=== PATIENT | female | born 1970 | race Caucasian/White ===

== ENCOUNTER 2018-08-07 23:51 | Inpatient (IN) | payer BC ==
[~2018-08-07] VITALS: Ht 167.6 cm; Wt 103.4 kg
[2018-08-08 00:04] VITALS: BP_SYST 107
--- NOTE | 2018-08-08 00:09 | NUR ---
Pt placed to ER waiting room in stable condition.
--- NOTE | 2018-08-08 00:54 | NUR ---
0054 - Patient to ER bed 4 to gown for evaluation. Side rails up. Report given to MARÍA Rosas.
--- NOTE | 2018-08-08 01:00 | NUR ---
Pt C/O epigastric abdominal pain and nausea x 2 days. Pt states the pain has gotten progressively worse and new onset of vomiting upon arrival to the ER. Denies any fever, radiating pain or any other symptoms at this time. Will continue to monitor.
--- NOTE | 2018-08-08 01:10 | NUR ---
ER Dr. Fernandes at bedside examining patient.
[2018-08-08] MEDS ORDERED: NACL 0.9% 1,000 ML IV ONE (01:13)
[2018-08-08] MEDS ORDERED: DIPHENHYDRAMINE INJ 50 MG/ML VIAL IVP ONE (01:15)
[2018-08-08] MEDS ORDERED: MORPHINE 4 MG/ML INJ. SYRINGE IVP ONE (01:15)
[2018-08-08] MEDS ORDERED: ONDANSETRON HCL 4 MG/2 ML VIAL IVP ONE (01:15)
[2018-08-08 01:34] LABS: BILIRUBIN,URINE NEGATIVE (NEGATIVE); BLOOD, URINE 3+ (NEGATIVE); CLARITY/URINE SL HAZY (CLEAR); COLOR,URINE YELLOW (YELLOW); GLUCOSE,URINE NEGATIVE (NEGATIVE); KETONES,URINE 3+ (NEGATIVE); LEUKOCYTE ESTERASE ,URINE TRACE (NEGATIVE); NITRITE, URINE NEGATIVE (NEGATIVE); PROTEIN URINE TRACE (NEGATIVE); UROBILINOGEN,URINE 0.2 (0.2-1.0)
[2018-08-08 01:35] LABS: BASOPHILS % (AUTO) 0.2 % (0.0-2.0); EOSINOPHILS # (AUTO) 0.1 K/uL (0.0-0.4); EOSINOPHILS % (AUTO) 0.8 % (0.0-4.0); HEMATOCRIT 39.1 % (36-48); HEMOGLOBIN 13.6 g/dL (12.0-16.0); LYMPHOCYTES # (AUTO) 1.9 K/uL (1.0-5.5); LYMPHOCYTES % (AUTO) 11.4 % (20.5-51.5); MEAN CORPUSCULAR HEMOGLOBIN 33 pg (27-31); MEAN CORPUSCULAR HGB CONC 35 % (32-36); MEAN CORPUSCULAR VOLUME 94 fL (79.0-98.0); MONOCYTES # (AUTO) 0.6 K/uL (0.0-1.0); MONOCYTES % (AUTO) 3.4 % (1.7-9.3); NEUTROPHILS % (AUTO) 84.2 % (40.0-70.0); PLATELET COUNT (AUTO) 291 K/uL (130-430); RED BLOOD CELL COUNT(AUTO) 4.18 MIL/uL (4.2-6.2); RED CELL DISTRIBUTION WIDTH 12.5 % (9.0-15.0); WHITE BLOOD COUNT (AUTO) 16.6 K/uL (4.8-10.8)
[2018-08-08 01:46] LABS: BACTERIA,URINE MODERATE /HPF (None Seen)
[2018-08-08 01:54] LABS: ALBUMIN 3.4 g/dL (3.4-4.8); CALCIUM 9.1 mg/dL (8.4-11.0); CREATININE 0.65 mg/dL (0.55-1.30); POTASSIUM 3.2 mmol/L (3.5-5.1); TOTAL BILIRUBIN 0.4 mg/dL (0.0-1.0)
--- NOTE | 2018-08-08 02:00 | NUR ---
Pt is resting in bed, no acute distress noted at this time. Will continue to monitor.
[2018-08-08] MEDS ORDERED: MAG HYDROX/AL HYDROX/SIMETH 30 ML, DICYCLOMINE HCL 20 MG, LIDOCAINE VISCOUS 2% 15ML (PO... PO ONE ×3 (03:30)
[2018-08-08] MEDS ORDERED: OMEP20CA10 PO (03:40)
[2018-08-08] MEDS ORDERED: HYDR25TA4 PO (03:40)
--- NOTE | 2018-08-08 03:41 | NUR ---
Medication reconciliation completed with information provided by patient
--- NOTE | 2018-08-08 03:57 | NUR ---
Patient will be admitted to care of Dr. Tsang. Admitted to med surg unit. Will go to room 107B. Belongings list completed. Summary report printed. Report will be given at bedside.
[2018-08-08] MEDS ORDERED: D5/0.45 NS 1,000 ML IV ONE (04:00)
[2018-08-08] MEDS ORDERED: PIPERACILLIN/TAZO 3.375 GM in NS 50 ML IV ONE ×2 (04:00→04:45)
--- NOTE | 2018-08-08 04:15 | NUR ---
ADMISSION NOTE Received patient from ER via johnnie, received report from MARÍA NUÑEZ. Patient admitted with diagnosis of Acute appendicitis. Patient oriented to hospital routine, call light, toileting and safety-patient verbalized understanding.
[2018-08-08 04:21] VITALS: BP_SYST 113
--- NOTE | 2018-08-08 04:41 | NUR ---
CONSULTATION PAGED/CALLED Reason for Consultation: surgical consult / appy Person Who was Notified: er contacted maria de jesus from [facility] and they spoke with doctor altaf Consulting Physician:altaf Options Advisor Specialty: surgeon Ordering Physician: rena
[2018-08-08] MEDS ORDERED: PIPERACILLIN/TAZOBACTAM 3.375 GM/VIAL (ZOSYN) IV ONE (05:04)
--- NOTE | 2018-08-08 05:10 | NUR ---
RN ROUNDS Patient placed in room 107b, aox4, ambulatory, vitals stable. On room air, patient c/o of abd pain 5/10, tolerable, refused pain medication at this time. Patient npo and compliant. IV line to left ac intact and patent, started on IVF per md order. Plan of care discussed with patient, verbalized understanding, oriented to room and call light for nurse assistance, safety measures in place, will monitor.
--- NOTE | 2018-08-08 06:08 | NUR ---
RN ROUNDS Patient asleep, breathing even and unlabored, IVF ongoing, due antibiotic of zosyn administered. Safety measures in place, call light within reach, will monitor.
--- NOTE | 2018-08-08 06:54 | NUR ---
CLOSING NOTE Patient continues to sleep, breathing even and unlabored, needs attended to, safety measures maintained, will continue to monitor until report given to am nurse.
--- NOTE | 2018-08-08 07:20 | NUR ---
Opening Note patient resting in bed, awake and alert, denies pain at this time, breathing unlabored and symmetrical, no signs of distress, educated patient on use of call light for assistance, verbalized understanding, call light and bedside table left within reach, will continue to monitor patient
[2018-08-08 07:45] VITALS: BP_SYST 120
--- NOTE | 2018-08-08 08:06 | NUR ---
Patient being taken to OR at this time, will assess when she returns
[2018-08-08] MEDS ORDERED: fentaNYL CITRATE/PF 100 MCG/2 ML AMP IVP PRN ×2 (09:15)
[2018-08-08] MEDS ORDERED: KETOROLAC TROMETHAMINE 30 MG VIAL IVP PRN (09:15)
[2018-08-08] MEDS ORDERED: ONDANSETRON HCL 4 MG/2 ML VIAL IVP PRN ×2 (09:15→10:30)
[2018-08-08] MEDS: NACL 0.9% 1,000 ML IV SCH ×3 (09:55→22:50)
[2018-08-08] MEDS ORDERED: LR 1,000 ML IV.SOLN IV ONE (10:00)
[2018-08-08] MEDS ORDERED: GLYCOPYRROLATE 0.2 MG/ML VIAL ONE (10:00)
[2018-08-08] MEDS ORDERED: KETOROLAC TROMETHAMINE 30 MG VIAL ONE (10:00)
[2018-08-08] MEDS ORDERED: ROCURONIUM BROMIDE 10 MG/ML (ZEMURON) ONE (10:00)
[2018-08-08] MEDS ORDERED: ACETAMINOPHEN 325 MG TABLET PO PRN ×2 (10:00→10:30)
[2018-08-08] MEDS ORDERED: PROPOFOL 200MG/ 20ML VIAL (DIPRIVAN) IV ONE (10:00)
[2018-08-08] MEDS ORDERED: BUPIVACAINE /EPINEPHRINE/PF 0.25% 30 ML VIAL INJ ONE (10:00)
[2018-08-08] MEDS ORDERED: SEVOFLURANE 15 MIN GAS INH ONE (10:00)
[2018-08-08] MEDS ORDERED: MIDAZOLAM HCL 5 MG/ML VIAL (VERSED) IV ONE (10:00)
[2018-08-08] MEDS ORDERED: LABETALOL 100 MG/ 20ML VIAL ONE (10:00)
[2018-08-08] MEDS ORDERED: LIDOCAINE 2%, 20 ML MDV ONE (10:00)
[2018-08-08] MEDS ORDERED: BUPIVACAINE /PF 0.5% 30 ML VIAL ONE (10:00)
[2018-08-08] MEDS ORDERED: ONDANSETRON HCL 4 MG/2 ML VIAL ONE ×2 (10:00→10:33)
[2018-08-08] MEDS ORDERED: PHENYLEPHRINE HCL 10 MG/ML VIAL (NEOSYNEPHRINE) ONE (10:00)
[2018-08-08] MEDS ORDERED: fentaNYL CITRATE/PF 100 MCG/2 ML AMP ONE (10:00)
[2018-08-08] MEDS ORDERED: HYDROmorphone 1 MG INJ. 1 MG/ML AMPUL IVP PRN (10:00)
[2018-08-08] MEDS ORDERED: NEOSTIGMINE METHYLSULFATE 1 MG/ML, 10 ML VIAL ONE (10:00)
[2018-08-08] MEDS ORDERED: MUPIROCIN 2% TOPICAL OINTMENT 22 GM NS PRN (10:30)
[2018-08-08] MEDS ORDERED: ZOLPIDEM TARTRATE 5 MG TABLET PO PRN (10:30)
[2018-08-08] MEDS ORDERED: MORPHINE 2 MG/ML INJ. SYRINGE IVP PRN ×2 (10:30)
[2018-08-08] MEDS ORDERED: DOCUSATE SODIUM 100 MG CAPSULE PO PRN (10:30)
[2018-08-08] MEDS ORDERED: MAGNESIUM SULFATE 50 ML IV PRN (10:30)
[2018-08-08] MEDS ORDERED: LORazepam 2 MG/ML VIAL IVP PRN (10:30)
--- NOTE | 2018-08-08 10:45 | NUR ---
Patient Back on Unit at this time, family at bedside, patient awake and alert, vitals within normal limits, dressings clean dry and in tact, safety precautions in place, educated patient on use of call light for assistance, verbalized understanding, call light and bedside table left within reach, will continue to monitor
[2018-08-08 11:30] VITALS: BP_SYST 113
[2018-08-08] MEDS: CEFAZOLIN 2 GM IVPB PREMIX 50 ML IV SCH ×2 (12:03→17:16)
--- NOTE | 2018-08-08 12:45 | NUR ---
Incentive Spirometer patient was educated on device, verbalized understanding, was able to reach 1000 mL, educated fernando goal of 1500 mL and frequency of use, verbalized understanding, left within reach
[2018-08-08] MEDS: HYDROcodone/ACETAMIN 5-325 MG TAB (NORCO/ VICODIN) PO PRN (13:05)
[2018-08-08] MEDS: metroNIDAZOLE 500 mg/NS 100 ML IV SCH ×2 (13:05→18:35)
--- NOTE | 2018-08-08 14:30 | NUR ---
Patient Ambulated to Restroom steady gait, educated her on safety, verbalized understanding, was assisted back to bed, educated patient on use of call light for assistance, verbalized understanding, call light and bedside table left within reach, will continue to monitor
[2018-08-08 15:37] VITALS: BP_SYST 113
--- NOTE | 2018-08-08 17:23 | NUR ---
Antibiotics Hung at this time as scheduled, educated patient regarding med, verbalized understanding, IV site remains patent, family at bedside, patient complaining of pain, educated her about pain meds, verbalized understanding, doesn't want pain meds at this time, educated her to let me know when she needs them, verbalized understanding, no other needs at this time, educated patient on use of call light for assistance, verbalized understanding, call light and bedside table left within reach, will continue to monitor
[2018-08-08] MEDS: MORPHINE 2 MG/ML INJ. SYRINGE IVP PRN (18:35)
[2018-08-08] MEDS: ONDANSETRON HCL 4 MG/2 ML VIAL IVP PRN (18:35)
[2018-08-08] MEDS: POTASSIUM CHLORIDE 20 MEQ TAB.PRT.SR PO PRN (18:36)
--- NOTE | 2018-08-08 19:15 | NUR ---
Closing Note patient resting in bed, awake and alert, denies pain at this time, breathing unlabored and symmetrical, IV fluids infusing, family at bedside, no other needs, safety precautions in place, endorsed to [employer] shift supervisor nurse
--- NOTE | 2018-08-08 19:28 | NUR ---
OPENING NOTES Pt and endorsement received from day shift nurse. Pt is AAOx4, lying in bed. Family at bedside. Pt on IVF and infusing well on left AC G20. No complains of pain or discomfort at this time. No signs of acute distress or SOB noted. Educated on safety precautions and encouraged to use call light when needed. Safety precautions in place with 3 side rails up, bed alarm on, locked and in lowest position. Call light with pt. Will continue to monitor.
[2018-08-08 20:31] VITALS: BP_SYST 105
--- NOTE | 2018-08-08 22:55 | NUR ---
AMBULATE Assisted pt to ambulate in the hallway and back to her room, pt tolerated well. Pt verbalized she can tolerate the pain at this time. No signs of acute distress or SOB noted. IVF patent and infusing well. Safety precautions in place and call light with pt. Will continue to monitor.
[2018-08-09 00:09] VITALS: BP_SYST 99
--- NOTE | 2018-08-09 00:09 | NUR ---
ROUNDS Pt is resting in bed with both eyes closed. With visible chest rise and fall with unlabored breathing noted. IVF patent and infusing well. No complains of pain at this time. No signs of acute distress or SOB noted. Safety precautions in place and call light with pt. Will continue to monitor.
--- NOTE | 2018-08-09 03:06 | NUR ---
ROUNDS Pt is resting in bed with both eyes closed, with visible chest rise and fall with unlabored breathing noted. Pt is easily arousable. IVF infusing well. No complains of pain and no signs of acute distress noted. Safety precautions in place and call light with pt. Will continue to monitor.
[2018-08-09] MEDS: ONDANSETRON HCL 4 MG/2 ML VIAL IVP PRN (03:57)
[2018-08-09 04:00] VITALS: BP_SYST 112
[2018-08-09] MEDS: MORPHINE 2 MG/ML INJ. SYRINGE IVP PRN (04:01)
--- NOTE | 2018-08-09 04:01 | NUR ---
MORPHINE 2MG GIVEN Assisted pt to the restroom and back to bed. Pt complained of abdominal pain with a scale of 10/10. Zofran 4mg IVP given and Morphine 2mg IVP given as ordered. Encouraged position of comfort and use of incentive spirometer, pt able to inspire 1500ml of air. No signs of acute distress noted. Safety precautions in place and call light with pt. Will continue to monitor.
--- NOTE | 2018-08-09 06:24 | NUR ---
CLOSING NOTES Pt is resting in bed with both eyes closed, with visible chest rise and fall with unlabored breathing noted. Pt is easily arousable. No complains of pain or discomfort at this time. No signs of acute distress or SOB noted. IVF patent and infusing well. All needs attended throughout the shift. Safety precautions maintained with 3 side rails up, bed alarm on, locked and in lowest position. Call light with pt. Will endorse to day shift nurse.
[2018-08-09 06:33] LABS: BASOPHILS # (AUTO) 0.1 K/uL (0.0-0.2); BASOPHILS % (AUTO) 0.5 % (0.0-2.0); EOSINOPHILS # (AUTO) 0.2 K/uL (0.0-0.4); EOSINOPHILS % (AUTO) 1.5 % (0.0-4.0); HEMATOCRIT 34.7 % (36-48); HEMOGLOBIN 11.8 g/dL (12.0-16.0); LYMPHOCYTES # (AUTO) 3.6 K/uL (1.0-5.5); LYMPHOCYTES % (AUTO) 31.7 % (20.5-51.5); MEAN CORPUSCULAR HEMOGLOBIN 32 pg (27-31); MEAN CORPUSCULAR HGB CONC 34 % (32-36); MEAN CORPUSCULAR VOLUME 95 fL (79.0-98.0); MONOCYTES # (AUTO) 0.7 K/uL (0.0-1.0); NEUTROPHILS # (AUTO) 6.8 K/uL (1.8-7.7); NEUTROPHILS % (AUTO) 60.3 % (40.0-70.0); PLATELET COUNT (AUTO) 276 K/uL (130-430); RED BLOOD CELL COUNT(AUTO) 3.64 MIL/uL (4.2-6.2); RED CELL DISTRIBUTION WIDTH 12.6 % (9.0-15.0); WHITE BLOOD COUNT (AUTO) 11.2 K/uL (4.8-10.8)
[2018-08-09 06:52] LABS: CREATININE 0.55 mg/dL (0.55-1.30); POTASSIUM 3.3 mmol/L (3.5-5.1)
[2018-08-09 07:00] LABS: ALBUMIN 2.6 g/dL (3.4-4.8); TOTAL BILIRUBIN 0.4 mg/dL (0.0-1.0)
--- NOTE | 2018-08-09 07:29 | NUR ---
Opening Note received bedside SBAR report from night time babysitter RN, patient resting in bed, no acute distress noted, surgical dressings clean, dry, and intact, RHEA drain intact, patients daughter at bedside, educated patient on use of call light and asked to call for assistance, patient verbalized understanding, call light in reach, educated patient on use of bed alarm for patient safety, patient refusing bed alarm, bed in low and locked position.
[2018-08-09 08:00] VITALS: BP_SYST 101
[2018-08-09] MEDS: NACL 0.9% 1,000 ML IV SCH (08:42)
[2018-08-09] MEDS: POTASSIUM CHLORIDE 20 MEQ TAB.PRT.SR PO PRN (08:43)
[2018-08-09] MEDS: HYDROcodone/ACETAMIN 5-325 MG TAB (NORCO/ VICODIN) PO PRN (08:48)
--- NOTE | 2018-08-09 08:53 | NUR ---
Advanced Diet patient tolerating diet well, patient denies any nausea or vomiting, patient states that she is passing gas, advanced diet to mechanical soft for lunch, patient verbalized understanding, patients daughter at bedside.
--- NOTE | 2018-08-09 09:45 | NUR ---
Education/RHEA drain educated patient and patients daughter on emptying RHEA drain and how to maintain bulb suction, patients daughter Letitia returned demonstration, 50ml red drainage emptied from RHEA drain, patient tolerated well, patient resting in bed, no acute distress noted.
--- NOTE | 2018-08-09 09:57 | NUR ---
Nutrition Update Senthil Scale 18 noted. Pt admitted for acute appendicitis. Diet: mechanical soft BMI: 36.8 kg/m2 RD to follow per nutrition care standards.
--- NOTE | 2018-08-09 11:04 | NUR ---
Physician Rounds Dr. Tsang at bedside examining patient.
--- NOTE | 2018-08-09 11:07 | NUR ---
Physician Rounds Dr. Velásquez at bedside speaking with patient and patients daughter.
[2018-08-09] MEDS ORDERED: HYDR-4274 PO (11:25)
[2018-08-09] MEDS ORDERED: SULF1TAB48 PO (11:26)
[2018-08-09 11:27] VITALS: BP_SYST 101
[2018-08-09 11:40] VITALS: BP_SYST 101
--- NOTE | 2018-08-09 11:45 | NUR ---
Ambulating in dejesus patient ambulating in dejesus with daughter, steady gait noted.
--- NOTE | 2018-08-09 12:30 | NUR ---
Lunch patient tolerated lunch well, denies any nausea or vomiting.
--- NOTE | 2018-08-09 12:58 | NUR ---
Discharge patient provided with discharge packet and instructions, instructed patient to follow up with Dr. Mancera and PCP, patient verbalized understanding, written prescription for norco and bactrim provided to patient, IV catheter removed, catheter intact, no bleeding, RHEA drain emptied 30ml, steady gait noted, no acute distress noted, all belongings sent with patient, patient accompanied by adult daughter Letitia for discharge home, patient taken to parking lot via wheelchair.
== END 2018-08-09 12:55 | disposition home or self-care (01) | DRG 342 ==
LOC: SED 23:51 → SMU 08-08 04:01
PROVIDERS: ADMIT General Practice; ATTEND General Practice
PROC: 0WJJ4ZZ Inspection of Pelvic Cavity, Percutaneous Endoscopic Approach (ICD-10-PCS; 2018-08-08)
PROC: 0DTJ4ZZ Resection of Appendix, Percutaneous Endoscopic Approach (ICD-10-PCS; principal; 2018-08-08 08:30)
DX: K35.80 Unspecified acute appendicitis (principal); N39.0 Urinary tract infection, site not specified; E44.1 Mild protein-calorie malnutrition; K66.0 Peritoneal adhesions (postprocedural) (postinfection); E87.6 Hypokalemia; I10 Essential (primary) hypertension; N80.9 Endometriosis, unspecified; Z68.36 Body mass index [BMI] 36.0-36.9, adult
CPT/HCPCS: 36415; 80053; 81000-TC; 83036; 83690-TC; 83735-TC; 85025; 85730-TC; 87086; 88304; 96361; 96374; 96375; 99285; C1727; J0690; J1200; J1885; J2001; J2250; J2270; J2370; J2405; J2543; J2704; J2710; J3010; J3490; J7030; J7120